=== PATIENT | male | born 1980 | race Caucasian/White ===

== ENCOUNTER 2020-06-28 04:05 | Emergency (ER) | payer SELFPAY ==
[2020-06-28] MEDS ORDERED: Albuterol/Ipratropium 3.0-0.5 MG/3 ML Neb Soln NEB ONE (04:14)
[2020-06-28] MEDS ORDERED: predniSONE 10 MG Tab PO ONE (04:40)
[2020-06-28] MEDS ORDERED: Albuterol HFA 18 Gm Inhaler INH STA (04:42)
--- NOTE | 2020-06-28 04:45 | EDM.PDOC ---
ED HPI GENERAL MEDICAL PROBLEM - General Chief Complaint: Respiratory Problem Stated Complaint: SOB Time Seen by Provider: 06/28/20 04:20 - History of Present Illness INITIAL COMMENTS - FREE TEXT/NARRATIVE: HISTORY AND PHYSICAL: History of present illness: This is a 39-year-old gentleman with history significant for asthma presents ER today complaining of shortness of breath this evening. Patient reports that he started feeling short of breath approximately 1/2 days ago and is progressively getting worse. Patient reports that he has run out of his albuterol MDI and did have nothing to utilize. Patient denies any recent fevers, shakes, chills, nausea, vomiting, diarrhea, dysuria, frequency, urgency, chest pain, abdominal discomfort. Patient reports he has multiple allergies to environmental agents but no drug allergies. Patient denies any tobacco alcohol or drugs. Patient has any hypertension, diabetes, liver, kidney problems. Patient reports no prior intubations or ICU admissions. Review of systems: As per history of present illness and below otherwise all systems reviewed and negative. Past medical history: As per history of present illness and as reviewed below otherwise noncontributory. Surgical history: As per history of present illness and as reviewed below otherwise noncontributory. Social history: No reported history of drug or alcohol abuse. Family history: As per history of present illness and as reviewed below otherwise noncontributory. Physical exam: This patient was seen and evaluated during the 2019 SARS-CoV-2 novel coronavirus pandemic period. Community viral transmission is ongoing at time of this encounter and the emergency department is operating under pandemic response procedures. Constitutional: Patient is oriented to person, place, and time. Appears well-de veloped and well-nourished. No distress. HEENT: Moist mucous membranes Head: Normocephalic and atraumatic Eyes: Right eye exhibits no discharge. Left eye exhibits no discharge. No scleral icterus Neck: Normal range of motion. No tracheal deviation present. Cardiovascular: Normal rate and regular rhythm. Pulmonary: Effort normal, no respiratory distress. Diffuse mild expiratory wheezing. No respiratory distress. Abdominal: No distention Musculoskeletal: Normal range of motion Neurologic: Alert and oriented to person, place and time. Skin: Freeborn, warm and dry. Psychiatric: Normal mood and affect. Behavior is normal. Judgment and thought content normal. Nursing note and vital signs have been reviewed Therapeutics: Prednisone Albuterol/DuoNeb inhalers Albuterol MDI Assessment and plan: [This is a 39-year-old gentleman with history significant asthma presents ER today secondary to an asthma exacerbation. Patient will be given prednisone 40 mg daily for 5 days as well as an albuterol MDI to utilize at home. Patient currently reports he feels 100% improved after the nebulizer treatment he received here in the ED. Patient is ambulating in ER without shortness of breath. Patient's pulse ox currently is 96% on room air. Patient is able to speak in full sentences and reports that he feels if he had an inhaler at home he would likely not have had to come to the ER. Patient be discharged home with an inhaler and hand. Reassessment at the time of disposition demonstrates that the patient is in no acute distress. The patient has remained stable throughout the entire ED visit and is without objective evidence for acute process requiring urgent intervention or hospitalization. The patient is stable for discharge, counseling is provided as documented above, discussed symptomatic treatment and specific conditions for return. I have spoken with the patient/caregiver and discussed todays findings, in addition to providing specific details for the plan of care. Questions are answered and there is agreement with the plan. Definitive disposition and diagnosis as appropriate pending reevaluation and review of above. headache Pain Score (Numeric/FACES): 5 throat Pain Score (Numeric/FACES): 5 - Related Data Allergies Allergy/AdvReac Type Severity Reaction Status Date / Time No Known Allergies Allergy Verified 06/28/20 04:16 Home Meds: Home Meds Albuterol Sulfate [Proair Hfa] 1 inh INH DAILY PRN 06/28/20 [History] predniSONE [Prednisone] 50 mg PO DAILY #5 tablet 06/28/20 [Rx] Past Medical History Respiratory History: Reports: Asthma - Infectious Disease History Infectious Disease History: Reports: Chicken Pox - Past Surgical History GI Surgical History: Reports: Appendectomy Social & Family History - Family History Family Medical History: No Pertinent Family History - Caffeine Use Caffeine Use: Reports: Coffee, Energy Drinks, Soda, Tea - Recreational Drug Use Recreational Drug Use: No ED ROS GENERAL - Review of Systems Review Of Systems: See Below ED EXAM, GENERAL - Physical Exam Exam: See Below Course - Vital Signs Last Recorded V/S: Last Vital Signs Temp 97.4 F 03/29/21 04:13 Pulse 91 06/28/20 04:19 Resp 18 06/28/20 04:19 BP 117/85 06/28/20 04:19 Pulse Ox 95 06/28/20 04:19 - Orders/Labs/Meds Orders: Active Orders 24 hr Category Date Time Status RT Aerosol Therapy [RC] ASDIRECTED Care 06/28/20 04:14 Active predniSONE Med 06/28/20 04:40 Once 40 mg PO ONETIME ONE Meds: Medications Discontinued Medications Generic Name Dose Route Start Last Admin Trade Name Xochitl PRN Reason Stop Dose Admin Albuterol/Ipratropium 3 ml 06/28/20 04:14 06/28/20 04:25 Albuterol/Ipratropium 3.0-0.5 Mg/3 Ml Neb Soln NEB 06/28/20 04:15 3 ml ONETIME ONE Administration Departure - Departure Time of Disposition: 04:43 Disposition: Home, Self-Care 01 Condition: Good Clinical Impression: Acute asthma - Discharge Information Instructions: Asthma, Adult Additional Instructions: You were seen and evaluated in the ER today secondary to an asthma exacerbation. You will be discharged home with a prescription for prednisone to take daily for the next 5 days. We will also give you an albuterol inhaler to assist you if you have any further episodes of wheezing. Please make an appointment to see your family doctor for reevaluation. Please get plenty rest. The following information is given to patients seen in the emergency department who are being discharged to home. This information is to outline your options for follow-up care. We provide all patients seen in our emergency department with a follow-up referral. The need for follow-up, as well as the timing and circumstances, are variable depending upon the specifics of your emergency department visit. If you don't have a primary care physician on staff, we will provide you with a referral. We always advise you to contact your personal physician following an emergency department visit to inform them of the circumstance of the visit and for follow-up with them and/or the need for any referrals to a consulting specialist. The emergency department will also refer you to a specialist when appropriate. This referral assures that you have the opportunity for follow-up care with a specialist. All of these measure are taken in an effort to provide you with optimal care, which includes your follow-up. Under all circumstances we always encourage you to contact your private physician who remains a resource for coordinating your care. When calling for follow-up care, please make the office aware that this follow-up is from your recent emergency room visit. If for any reason you are refused follow-up, please contact the [facility] Emergency Department at and asked to speak to the emergency department charge nurse. [facility] [address] [place] [id number] [facility] [address] [place] [id number] Sepsis Event Note (ED) - Evaluation Sepsis Screening Result: No Definite Risk - Focused Exam Vital Signs: Vital Signs Temp Pulse Resp BP Pulse Ox 06/28/20 04:19 91 18 117/85 95 06/28/20 04:13 97.4 F 107 H 18 144/91 H 92 L - My Orders Last 24 Hours: My Active Orders 06/28/20 04:14 RT Aerosol Therapy [RC] ASDIRECTED 06/28/20 04:40 predniSONE 40 mg PO ONETIME ONE - Assessment/Plan Last 24 Hours: My Active Orders 06/28/20 04:14 RT Aerosol Therapy [RC] ASDIRECTED 06/28/20 04:40 predniSONE 40 mg PO ONETIME ONE
[2020-06-28] MEDS ORDERED: Albuterol 8 GM Inhaler INH ONE (04:56)
== END 2020-06-28 05:05 | disposition home or self-care (01) ==
LOC: MW.ED 04:05
DX: J45.901 Unspecified asthma with (acute) exacerbation (principal)
CPT/HCPCS: 94640; 99284; A9270; 99283; J3535-GY; J7620-GY